=== PATIENT | male | born 1960 | race Caucasian/White ===

== ENCOUNTER 2017-12-04 11:25 | Emergency (ER) | payer OTHER, SELFPAY ==
[2017-12-04 11:26] VITALS: BP 138/83; PULSE 71; RESP 18; TEMP 36.6; O2SAT 99
--- NOTE | 2017-12-04 12:03 | ED.EAR ---
HPI - Ear Problem <QUE Sena - Last Filed: 12/04/17 20:53> General Chief complaint: Ear Stated complaint: states rt ear infection Time Seen by Provider: 12/04/17 12:00 History of Present Illness HPI Narrative: 57-year-old male here for complaint of pain into his right ear. He reports that he was visiting [place] and he was surfing when he developed right ear pain. He was treated with ofloxacin drops for otitis externa he has been taking these drops for approximately 5 days he states that the pain to his right ear has not improved. He also reports that his pain has worsened where it radiates to his mastoid area and into the right face area. He denies any drainage from the ear. He denies any fevers or chills. No trauma to the ear. He he denies any deficiencies in hearing. No other concerns or complaints at this time. Related Data Previous Rx's Medication Instructions Recorded hydrocodone-acetaminophen [[place]] 1 tab PO Q6H PRN #5 tab 12/04/17 levofloxacin [Levaquin] 500 mg PO Q24H 7 Days #7 tab 12/04/17 Allergies Allergy/AdvReac Type Severity Reaction Status Date / Time No Known Drug Allergies Allergy Verified 12/04/17 11:34 Review of Systems <QUE Sena - Last Filed: 12/04/17 20:53> Constitutional Denies chills, Denies fever(s), Denies lethargy and Denies weakness Eyes Denies change in vision, Denies eye discharge, Denies irritation and Denies loss of vision ENT Ears, Nose, Mouth, and Throat: Reports otalgia Cardiovascular Denies chest pain, Denies irregular heart rhythm, Denies lightheadedness, Denies palpitations, Denies dyspnea, Denies dyspnea on exertion and Denies orthopnea Respiratory Denies cough, Denies dyspnea, Denies dyspnea on exertion and Denies wheezing Gastrointestinal Gastrointestinal: Denies abdominal pain, Denies change in bowel habits, Denies diarrhea, Denies nausea and Denies vomiting Genitourinary Denies hematuria, Denies flank pain, Denies urinary incontinence and Denies urinary urgency Musculoskeletal Denies back pain, Denies muscle weakness, Denies numbness and Denies tingling Integumentary/Breasts Denies pruritus, Denies erythema, Denies rash and Denies wounds Neurologic Denies confusion, Denies loss of vision, Denies numbness, Denies tingling and Denies weakness Psychiatric Denies anxiety, Denies confusion, Denies depression, Denies homicidal ideation and Denies suicidal ideation Endocrine Denies palpitations Allergic/Immunologic Denies wheezing Exam <QUE Sena - Last Filed: 12/04/17 20:53> Initial Vital Signs Initial Vital Signs: Vital Signs Temperature 97.9 F 12/04/17 11:26 Pulse Rate 71 12/04/17 11:26 Respiratory Rate 18 12/04/17 11:26 Blood Pressure 138/83 H 12/04/17 11:26 Pulse Oximetry 99 12/04/17 11:26 Const General: cooperative and well developed Nutritional Appearance: well nourished Orientation: alert, awake, oriented x3 and not confused HENMT Ears: hearing grossly normal bilaterally, external ears normal and other (Right tympanic membrane erythematous and bulging. Right external ear canal unremarkable. Mild tenderness to the right mastoid area no fluctuance or induration no erythema) Eyes Sclera: sclerae normal Cornea: corneas normal Pupils: PERRL EOM: EOM intact bilaterally Neck Neck: normal visual inspection, trachea midline, No lymphadenopathy, No midline deformity and No JVD Lymphatic: No lymphedema Resp Effort & Inspection: normal respiratory effort, able to speak in complete sentences, no respiratory distress and no use of accessory muscles Auscultation: clear to auscultation bilaterally, no rales, no rhonchi and no wheezes Cardio Rate: regular rate Rhythm: regular rhythm Heart Sounds: no click, no gallops, no murmurs and no rubs Skin General: no rashes or lesions noted, No jaundice and No petechiae <Michael Perez DO - Last Filed: 12/05/17 07:08> Initial Vital Signs Initial Vital Signs: Vital Signs Temperature 97.9 F 12/04/17 11:26 Pulse Rate 71 12/04/17 11:26 Respiratory Rate 18 12/04/17 11:26 Blood Pressure 138/83 H 12/04/17 11:26 Pulse Oximetry 99 12/04/17 11:26 Course <QUE Sena - Last Filed: 12/04/17 20:53> Orders Ordered: Discontinued Medications Hydrocodone Bitart/Acetaminophen ([place] 5/325) 1 tab PO NOW ONE Stop: 12/04/17 12:28 Last Admin: 12/04/17 12:37 Dose: 1 tab Levofloxacin (Levaquin) 750 mg in 150 mls @ 100 mls/hr IV NOW ONE Stop: 12/04/17 13:55 Last Infusion: 12/04/17 14:32 Dose: 0 mls/hr Admin: 12/04/17 13:02 Dose: 100 mls/hr Vital Signs - 8 hr 12/04/17 14:32 Pulse Rate 60 Respiratory Rate 20 Blood Pressure 140/94 H Pulse Oximetry 98 <Michael Perez DO - Last Filed: 12/05/17 07:08> Orders Ordered: Discontinued Medications Hydrocodone Bitart/Acetaminophen ([place] 5/325) 1 tab PO NOW ONE Stop: 12/04/17 12:28 Last Admin: 12/04/17 12:37 Dose: 1 tab Levofloxacin (Levaquin) 750 mg in 150 mls @ 100 mls/hr IV NOW ONE Stop: 12/04/17 13:55 Last Infusion: 12/04/17 14:32 Dose: 0 mls/hr Admin: 12/04/17 13:02 Dose: 100 mls/hr Vital Signs - 8 hr 12/04/17 14:32 Pulse Rate 60 Respiratory Rate 20 Blood Pressure 140/94 H Pulse Oximetry 98 Medical Decision Making <QUE Sena - Last Filed: 12/04/17 20:53> MDM Narrative Medical decision making narrative: Due to tenderness over the mastoid area discussed case with ENT Dr. Sanches who recommends 1 dose of IV antibiotics in the emergency room and oral antibiotics and follow up with ENT later this week. He was given IV Levaquin and placed on p.o. Levaquin. He is to call ENT office tomorrow to schedule follow-up appointment later this week for re-evaluation and sugar is improving. [id number] ibuprofen as needed for any discomfort. Small amount of [place] is given for breakthrough pain. For any worsening symptoms return to the emergency room Discharge Plan Departure Patient Disposition: Home, Self-Care Clinical Impression: Otitis media Discharge Date/Time: 12/04/17 14:33 Interventions: ED Discharge Assessment Last Done: 12/04/17 14:32 Instructions: Middle Ear Infection Activity Restrictions/Additional Instructions: Sinus symptoms presents as a right inner ear infection. Due to tenderness over the mastoid area IV antibiotics was given the Emergency Room and placed on oral antibiotics to treat for starting mastoiditis. Follow up with ENT later this week call their office at the number provided for re-evaluation to ensure symptoms are improving and not worsening. Use [id number] ibuprofen for discomfort. Small amount of [place] is prescribed for breakthrough pain use as directed no driving while on the [place]. For any worsening symptoms return to the emergency room. Prescriptions: New hydrocodone-acetaminophen [[place]] 5-325 mg tablet 1 tab PO Q6H PRN (Reason: pain) Qty: 5 RF: 0 levofloxacin [Levaquin] 500 mg tablet 500 mg PO Q24H 7 Days Qty: 7 RF: 0 Referrals: Charles Sanches MD [Physician] -
--- NOTE | 2017-12-04 12:13 | ED_ITS ---
HPI - Ear Problem <QUE Sena - Last Filed: 12/04/17 20:53> General Chief complaint: Ear Stated complaint: states rt ear infection Time Seen by Provider: 12/04/17 12:00 History of Present Illness HPI Narrative: 57-year-old male here for complaint of pain into his right ear. He reports that he was visiting [place] and he was surfing when he developed right ear pain. He was treated with ofloxacin drops for otitis externa he has been taking these drops for approximately 5 days he states that the pain to his right ear has not improved. He also reports that his pain has worsened where it radiates to his mastoid area and into the right face area. He denies any drainage from the ear. He denies any fevers or chills. No trauma to the ear. He he denies any deficiencies in hearing. No other concerns or complaints at this time. Related Data Previous Rx's Medication Instructions Recorded hydrocodone-acetaminophen [[place]] 1 tab PO Q6H PRN #5 tab 12/04/17 levofloxacin [Levaquin] 500 mg PO Q24H 7 Days #7 tab 12/04/17 Allergies Allergy/AdvReac Type Severity Reaction Status Date / Time No Known Drug Allergies Allergy Verified 12/04/17 11:34 Review of Systems <QUE Sena - Last Filed: 12/04/17 20:53> Constitutional Denies chills, Denies fever(s), Denies lethargy and Denies weakness Eyes Denies change in vision, Denies eye discharge, Denies irritation and Denies loss of vision ENT Ears, Nose, Mouth, and Throat: Reports otalgia Cardiovascular Denies chest pain, Denies irregular heart rhythm, Denies lightheadedness, Denies palpitations, Denies dyspnea, Denies dyspnea on exertion and Denies orthopnea Respiratory Denies cough, Denies dyspnea, Denies dyspnea on exertion and Denies wheezing Gastrointestinal Gastrointestinal: Denies abdominal pain, Denies change in bowel habits, Denies diarrhea, Denies nausea and Denies vomiting Genitourinary Denies hematuria, Denies flank pain, Denies urinary incontinence and Denies urinary urgency Musculoskeletal Denies back pain, Denies muscle weakness, Denies numbness and Denies tingling Integumentary/Breasts Denies pruritus, Denies erythema, Denies rash and Denies wounds Neurologic Denies confusion, Denies loss of vision, Denies numbness, Denies tingling and Denies weakness Psychiatric Denies anxiety, Denies confusion, Denies depression, Denies homicidal ideation and Denies suicidal ideation Endocrine Denies palpitations Allergic/Immunologic Denies wheezing Exam <QUE Sena - Last Filed: 12/04/17 20:53> Initial Vital Signs Initial Vital Signs: Vital Signs Temperature 97.9 F 12/04/17 11:26 Pulse Rate 71 12/04/17 11:26 Respiratory Rate 18 12/04/17 11:26 Blood Pressure 138/83 H 12/04/17 11:26 Pulse Oximetry 99 12/04/17 11:26 Const General: cooperative and well developed Nutritional Appearance: well nourished Orientation: alert, awake, oriented x3 and not confused HENMT Ears: hearing grossly normal bilaterally, external ears normal and other (Right tympanic membrane erythematous and bulging. Right external ear canal unremarkable. Mild tenderness to the right mastoid area no fluctuance or induration no erythema) Eyes Sclera: sclerae normal Cornea: corneas normal Pupils: PERRL EOM: EOM intact bilaterally Neck Neck: normal visual inspection, trachea midline, No lymphadenopathy, No midline deformity and No JVD Lymphatic: No lymphedema Resp Effort & Inspection: normal respiratory effort, able to speak in complete sentences, no respiratory distress and no use of accessory muscles Auscultation: clear to auscultation bilaterally, no rales, no rhonchi and no wheezes Cardio Rate: regular rate Rhythm: regular rhythm Heart Sounds: no click, no gallops, no murmurs and no rubs Skin General: no rashes or lesions noted, No jaundice and No petechiae <Michael Perez DO - Last Filed: 12/05/17 07:08> Initial Vital Signs Initial Vital Signs: Vital Signs Temperature 97.9 F 12/04/17 11:26 Pulse Rate 71 12/04/17 11:26 Respiratory Rate 18 12/04/17 11:26 Blood Pressure 138/83 H 12/04/17 11:26 Pulse Oximetry 99 12/04/17 11:26 Course <QUE Sena - Last Filed: 12/04/17 20:53> Orders Ordered: Discontinued Medications Hydrocodone Bitart/Acetaminophen ([place] 5/325) 1 tab PO NOW ONE Stop: 12/04/17 12:28 Last Admin: 12/04/17 12:37 Dose: 1 tab Levofloxacin (Levaquin) 750 mg in 150 mls @ 100 mls/hr IV NOW ONE Stop: 12/04/17 13:55 Last Infusion: 12/04/17 14:32 Dose: 0 mls/hr Admin: 12/04/17 13:02 Dose: 100 mls/hr Vital Signs - 8 hr 12/04/17 14:32 Pulse Rate 60 Respiratory Rate 20 Blood Pressure 140/94 H Pulse Oximetry 98 <Michael Perez DO - Last Filed: 12/05/17 07:08> Orders Ordered: Discontinued Medications Hydrocodone Bitart/Acetaminophen ([place] 5/325) 1 tab PO NOW ONE Stop: 12/04/17 12:28 Last Admin: 12/04/17 12:37 Dose: 1 tab Levofloxacin (Levaquin) 750 mg in 150 mls @ 100 mls/hr IV NOW ONE Stop: 12/04/17 13:55 Last Infusion: 12/04/17 14:32 Dose: 0 mls/hr Admin: 12/04/17 13:02 Dose: 100 mls/hr Vital Signs - 8 hr 12/04/17 14:32 Pulse Rate 60 Respiratory Rate 20 Blood Pressure 140/94 H Pulse Oximetry 98 Medical Decision Making <QUE Sena - Last Filed: 12/04/17 20:53> MDM Narrative Medical decision making narrative: Due to tenderness over the mastoid area discussed case with ENT Dr. Sanches who recommends 1 dose of IV antibiotics in the emergency room and oral antibiotics and follow up with ENT later this week. He was given IV Levaquin and placed on p.o. Levaquin. He is to call ENT office tomorrow to schedule follow-up appointment later this week for re- evaluation and sugar is improving. [id number] ibuprofen as needed for any discomfort. Small amount of [place] is given for breakthrough pain. For any worsening symptoms return to the emergency room Discharge Plan Departure Patient Disposition: Home, Self-Care Clinical Impression: Otitis media Discharge Date/Time: 12/04/17 14:33 Interventions: ED Discharge Assessment Last Done: 12/04/17 14:32 Instructions: Middle Ear Infection Activity Restrictions/Additional Instructions: Sinus symptoms presents as a right inner ear infection. Due to tenderness over the mastoid area IV antibiotics was given the Emergency Room and placed on oral antibiotics to treat for starting mastoiditis. Follow up with ENT later this week call their office at the number provided for re-evaluation to ensure symptoms are improving and not worsening. Use [id number] ibuprofen for discomfort. Small amount of [place] is prescribed for breakthrough pain use as directed no driving while on the [place]. For any worsening symptoms return to the emergency room. Prescriptions: New hydrocodone-acetaminophen [[place]] 5-325 mg tablet 1 tab PO Q6H PRN (Reason: pain) Qty: 5 RF: 0 levofloxacin [Levaquin] 500 mg tablet 500 mg PO Q24H 7 Days Qty: 7 RF: 0 Referrals: Charles Sanches MD [Physician] -
[2017-12-04] MEDS: HYDROCODONE/ACET 5/325 TABLET 1 TAB PO (12:37)
--- NOTE | 2017-12-04 12:46 | PC.NURSE ---
Attempts x2 for IV start. Unsuccessful
--- NOTE | 2017-12-04 12:54 | PC.NURSE ---
First 2 attempts done by primary RN
[2017-12-04] MEDS: levoFLOXacin 750 MG/150 ML PIGGYBACK 100 MG IV (13:02)
[2017-12-04 14:32] VITALS: BP 140/94; PULSE 60; RESP 20; O2SAT 98
== END 2017-12-04 14:33 | disposition home or self-care (01) ==
LOC: ED 13:05
PROVIDERS: Emergency Provider Nurse Practitioner Family
DX: H66.91 Otitis media, unspecified, right ear (principal)
CPT/HCPCS: 96365; 96366; 99283; 99284; J1956